=== PATIENT | female | born 1960 | race Caucasian/White ===

== ENCOUNTER 2023-09-24 10:00 | Day surgery (SDC) | payer OTHER ==
[~2023-09-24] VITALS: Ht 152.4 cm; Wt 110.7 kg
[2023-09-24] MEDS ORDERED: fentaNYL citrate 0.05 MG/ML VIAL ONE (12:31)
[2023-09-24] MEDS ORDERED: LIDOCAINE 2% 100 MG/5 ML UJET TP ONE (12:32)
[2023-09-24] MEDS ORDERED: MIDAZOLAM 5 MG/5 ML VIAL ONE (12:32)
== END 2023-09-24 14:30 | disposition home or self-care (01) ==
LOC: MDS 10:00 → MMU 10:16 → MDS 14:30
PROVIDERS: ATTEND Internal Medicine Gastroenterology
DX: Z12.11 Encounter for screening for malignant neoplasm of colon (principal); C22.8 Malignant neoplasm of liver, primary, unspecified as to type; K31.89 Other diseases of stomach and duodenum; K44.9 Diaphragmatic hernia without obstruction or gangrene; K29.70 Gastritis, unspecified, without bleeding; K20.90 Esophagitis, unspecified without bleeding; K76.6 Portal hypertension; I85.10 Secondary esophageal varices without bleeding; K64.9 Unspecified hemorrhoids; I10 Essential (primary) hypertension; Z90.710 Acquired absence of both cervix and uterus; Z98.890 Other specified postprocedural states; Z79.899 Other long term (current) drug therapy
CPT/HCPCS: 43235; 45378; J2250; J3010